=== PATIENT | female | born 1995 | race Caucasian/White ===

== ENCOUNTER 2020-08-18 13:31 | Outpatient (REF) | payer MEDICAID, SELFPAY ==
--- NOTE | 2020-08-18 | US_ITS ---
EXAMINATION: ULTRASOUND OB LESS THAN 14 WEEKS CLINICAL INFORMATION: Unknown LMP, needs dating. COMPARISON: None TECHNIQUE: Transabdominal ultrasound imaging of pelvis performed. FINDINGS: There is a single live intrauterine fetus with a crown-rump length of 4.08 cm corresponding to 11 weeks and 0 days and JAVY of 03/09/2021. Yolk sac is not visualized. The heart rate measures 167 bpm. There is normal motion seen. There is a small hypoechoic area seen along the subchorionic region suggestive of bleed. It measures 1.0 x 1.0 x 2.7 cm. Right ovary measures 1.9 x 1.4 x 1.4 cm and appears unremarkable. Left ovary measures 3.1 x 1.6 x 1.7 cm. It appears unremarkable. US/US OB <= 14 weeks fetus IMPRESSION: Live intrauterine fetus with an ultrasound gestational age of 11 weeks 0 days and JAVY of 03/09/2021. Incidental finding of a small subchorionic bleed measuring 2.7 cm, the largest measurement.
== END 2020-08-18 13:32 | disposition home or self-care (01) ==
LOC: HO.US 13:31
PROVIDERS: Visit Provider Family Medicine
DX: Z36.87 Encounter for antenatal screening for uncertain dates (principal); Z34.90 Encounter for supervision of normal pregnancy, unspecified, unspecified trimester
CPT/HCPCS: 76801

== ENCOUNTER 2025-06-19 09:09 | Outpatient (REF) | payer MEDICAID, SELFPAY ==
--- OUTSIDE RECORDS SUMMARY | 2025-06-18 10:45 | XMS_ITS | Encounter Summary ---
Author Organization [employer] Address [address] [facility] [address] [place] [address] Care Team Providers Care Application Support Consultant Name Role Phone Rylie Yañez DO Primary Care Provider [phone] Reason for Referral * Consultation (Routine) - Pending Review Specialty Diagnoses / Procedures Referred By Ari bell Referred To Contact Allergy Diagnoses Eczema, unspecified type Rylie Yañez DO [address] [place] [address] Phone: tel: fax: Referral ID Status Reason Start Date Expiration Date Visits Requested Visits Authorized [id number] Pending Review Specialty Services Required 06/18/2026 1 1 * Imaging (Routine) - Authorized Specialty Diagnoses / Procedures Referred By Ari bell Referred To Contact Radiology Diagnoses Subcutaneous nodules Procedures US Head Neck Soft Tissue Rylie Yañez DO [address] [place] [address] Phone: tel: fax: [address] Phone: tel: fax: Referral ID Status Reason Start Date Expiration Date V isits Requested Visits Authorized [id number] Authorized 06/18/2025 06/18/2026 1 1 * Consultation (Urgent) - Authorized Specialty Diagnoses / Procedures Referred By Ari bell Referred To Contact Behavioral Health Diagnoses Generalized anxiety disorder Procedures Referral to Behavioral Health Rylie Yañez DO [address] [place] [address] Phone: tel: fax: Referral ID Status Reason Start Date Expiration Date Visits Requested Visits Authorized [id number] Authorized Specialty Services Required 06/18/2026 1 1 Encounter Details Date Type Department Care Team (Late st Contact Info) Description 06/18/2025 10:45 AM EDT Office Visit [facility] [address] [place] [address] Rylie Yañez DO [address] [place] [address] Routine history and physical examination of adult (Primary Dx); Generalized anxiety disorder; Seizure disorder (CMS/HCC) (HCC); Chronic migraine; Eczema, unspecified type; Subcutaneous nodules; Polyarthralgia; Epigastric pain; BMI 24.0-24.9, adult; Dietary counseling; Exercise counseling Social History Tobacco Use Types Packs/Day Years Used Date Smoking Tobacco: Never Smokeless Tobacco: Never Alcohol Use Standard Drinks/Week Comments Yes 0 (1 standard drink = 0.6 oz pur e alcohol) Depression Answer Date Recorded Patient Health Questionnaire-9 Score 5 06/18/2025 Patient Health Questionnaire-9 Score 5 06/18/2025 Last PHQ-9: Questionnaire Data Not on file 1 Housing Stability Answer Date Recorded What is your housing situation today? I have lorraine pitts 06/18/[address] you li ve. Do you have problems with any of the following? I am not sure 06/18/2025 Food Insecurity Answer Date Recorded Within the past 12 months, y ou worried that your food would run out before you got money to buy more: Never True 06/11/2025 Within the past 12 months,th e food you bought just didn't last and you didn't have enough money to get more: Never True Transportation Answer Date Recorded In the past 12 months, has l ack of transportation kept you from medical appts, meetings, work or from getting things needed for daily living? No 06/11/2025 Utilities Answer Date Recorded In the past 12 months, has t he electric, gas, oil or water company threatened to shut off services in your home? No 06/11/2025 Depression Answer Date Recorded Patient Health Questionnaire-2 Score 2 06/18/2025 Internet Access Answer Date Recorded Internet Access Q1 Yes 06/11/2025 Internet Access Q2 Not on file 06/11/2025 Comments No Sex and Gender Information Value Date Recorded Sex Assigned at Female 06/27/2022 10:14 AM EDT Legal Sex Female 10:14 AM EDT Gender Identity Female 06/27/2022 10:14 AM EDT Sexual Orientation Straight 06/27/2022 10 :14 AM EDT documented as of this encounter Last Filed Vital Signs Vital Sign Reading Time Taken Comments Blood Pressure 132/80 06/18/2025 11:06 AM EDT Pulse 94 06/18/2025 11:06 AM EDT Temperature - - Respiratory Rate 21 06/18/2025 11:06 AM EDT Oxygen Saturation 98% 06/18/2025 11:06 AM EDT Inhaled Oxygen Concentration - - Weight 56 kg (123 lb 6 oz) 06/18/2025 11:06 AM E DT Height 149.9 cm (4' 11 ) 06/18/2025 11:06 AM EDT Body Mass Index 24.92 06/18/2025 11:06 AM EDT documented in this encounter Functional Status * Over the past 2 weeks, how often have you been bothered by any of the following problems? Question Answer Date of Assessment Author Patient Health Questionnaire -2 Score 2 06/18/2025 12:12 PM EDT Hannah Pat MA * Little interest or pleasure in doing things Answer Date of Assessment Author Several days 06/18/2025 12:12 PM EDT Hannah Pat MA * Feeling down, depressed, or hopeless Answer Date of Assessment Author Several days 06/18/2025 12:12 PM EDT Hannah Pat MA * Trouble falling or staying asleep, or sleeping too much Answer Date of Assessment Author Several days 06/18/2025 12:12 PM EDT Hannah Pat MA * Feeling tired or having little energy Answer Date of Assessment Author Several days 06/18/2025 12:12 PM EDT Hannah Pat MA * Poor appetite or overeating Answer Date of Assessment Author Not at all 06/18/2025 12:12 PM EDT Hannah Pat MA * Feeling bad about yourself - or that you are a failure or have let yourself or your family down Answer Date of Assessment Author Not at all 06/18/2025 12:12 PM EDT Hannah Pat MA * Trouble concentrating on things, such as reading the newspaper or watching television Answer Date of Assessment Author Several days 06/18/2025 12:12 PM EDT Hannah Pat MA * Moving or speaking so slowly that other people could have noticed? Or the opposite - being so fidgety or restless that you have been moving around a lot more than usual. Answer Date of Assessment Author Not at all 06/18/2025 12:12 PM EDT Hannah Pat MA * Thoughts that you would be better off or hurting yourself in some way Answer Date of Assessment Author Not at all 06/18/2025 12:12 PM EDT Hannah Pat MA * Patient Health Questionnaire-9 Score Answer Date of Assessment Author 5 06/18/2025 12:12 PM EDT Hannah Pat MA * How difficult have these problems made it for you to do your work, take care of things at home, or get along with other people? Answer Date of Assessment Author Not difficult at all 06/18/2025 12:12 PM EDT Hannah Hill MA * Over the last 2 weeks, how often have you been bothered by any of the following problems? Question Answer Date of Assessment Author Feeling nervous, anxious, or on edge 1 06/18/2025 12:12 PM EDT Hannah Pat MA Not being able to stop or co ntrol worrying 0 06/18/2025 12:12 PM EDT Hannah Pat MA Worrying too much about diff erent things 0 06/18/2025 12:12 PM BRIGITTET Hannah Pat MA Trouble relaxing 0 06/18/2025 12:12 PM EDT Hannah Pat MA Being so restless that it is hard to sit still 0 06/18/2025 12:12 PM EDT Hannah Pat MA Becoming easily annoyed or irritable 2 06/18/2025 12:12 PM EDT Hannah Pat MA Feeling afraid as if somethi ng awful might happen 0 06/18/2025 12:12 PM EDT Hananh Pat MA ADENIKE-7 Total Score 3 06/18/2025 12:12 PM EDT Hannah Pat MA documented as of this encounter Progress Notes * Rylie Otilio, DO - 06/18/2025 10:45 AM EDT LORENZO Lott is a 30 y.o. female, last seen by me for televisit in JUL 2020, presents for Annual Physical Exam. She says she has been getting a lot of pain in her bones. She says she discussed her joint pain with derm and was told that it could be side affect of her dupixent. She says that her symptoms started~ 2 mos ago and come and go. She denies any redness or swelling. No rash. Her mom had h/o OA and underwent knee replacements. She says she still gets flares of her eczema, but the dupixent helps overall. She uses an ointment from derm with the flares. She says she uses zyrtec prn itching, but it only really helps if she is asleep. She says she is following the neurology [employer] at [facility]. She says she is seizure-free for nearly 9 years.She says she is also getting gabapentin and fioricet. She says the fioricet works ok for her migraines, but sometimes she just needs to lie down in the dark. She feels that the gabapentin was startedto help with her anxiety. She still has a lot of anxiety and suffers from frequent anxiety attacks.She feels irritable and frustrated. She was seen a couple of years ago c/o nausea and was given pepcid prn but doesn't feel that it's helping. She gets a lot of discomfort in her epigastric area. She says she feels like she has a knot in her stomach after each meal. She lives with her BF and two daughters, 4 and 13. Sh is a FT mom. She gets SSI for her seizures and anxiety. She says she can't drive because she gets nervous and she is afraid she could have a seizure behindthe wheel. She has never smoked cigarettes. She says she smokes THC daily. She drinks alcohol occasionally. She follows with Eye care in [place] and has an appointment coming up. She says she last had a pap smear with her last at [facility]. Review of Systems Constitutional: Negative for activity change, appetite change, chills, fever and unexpected weight change. Respiratory: Negative for cough and shortness of breath. Cardiovascular: Negative for chest pain, palpitations and leg swelling. Gastrointestinal: Positive for abdominal distention. Negative for abdominal pain, diarrhea, nausea and vomiting. Musculoskeletal: Positive for arthralgias and joint swelling. Neurological: Positive for headaches. Negative for weakness. Psychiatric/Behavioral: The patient is nervous/anxious. Patient Active Problem List Diagnosis Eczema Seizure disorder ([facility] ([facility]) Vitamin D deficiency Chronic migraine Generalized anxiety disorder No Known Allergies No past medical history on file. No past surgical history on file. Family History Problem Relation Name Age of Onset Hypertension Mother Fibromyalgia Mother Osteoarthritis Mother Hypertension Father Arthritis Sister Diabetes Brother Hypertension Brother OBJECTIVE Visit Vitals BP 132/80 (BP Location: Left arm, Patient Position: Sitting, BP Cuff Size: Adult) Pulse 94 Resp 21 Ht 4' 11 (1.499 m) Wt 123 lb 6 oz (56 kg) LMP 05/28/2025 SpO2 98% BMI 24.92 kg/m?? OB Status Having periods Smoking Status Never BSA 1.53 m?? Physical Exam Constitutional: General: She is not in acute distress. Appearance: Normal appearance. HENT: Right Ear: Tympanic membrane, ear canal and external ear normal. Left Ear: Tympanic membrane, ear canal and external ear normal. Mouth/Throat: Pharynx: Oropharynx is clear. Eyes: Extraocular Movements: Extraocular movements intact. Conjunctiva/sclera: Conjunctivae normal. Pupils: Pupils are equal, round, and reactive to light. Cardiovascular: Rate and Rhythm: Normal rate and regular rhythm. Heart sounds: Normal heart sounds. No murmur heard. Pulmonary: Effort: Pulmonary effort is normal. Breath sounds: Normal breath sounds. No wheezing or rhonchi. Abdominal: General: Bowel sounds are normal. Palpations: Abdomen is soft. There is no mass. Tenderness: There is no abdominal tenderness. Musculoskeletal: General: Normal range of motion. Cervical back: Normal range of motion. No tenderness. Lymphadenopathy: Head: Right side of head: Posterior auricular adenopathy present. Cervical: No cervical adenopathy. Comments: Two ~ 5-10mm round, firm nodules behind R ear Skin: General: Skin is warm and dry. Findings: No rash. Neurological: General: No focal deficit present. Mental Status: She is alert and oriented to person, place, and time. Cranial Nerves: No cranial nerve deficit. Motor: No weakness. Gait: Gait normal. Psychiatric: Attention and Perception: Attention normal. Mood and Affect: Mood is anxious. Speech: Speech normal. Behavior: Behavior normal. Thought Content: Thought content normal. Patient Health Questionnaire-9 Score: 5 (06/18/2025 12:12 PM) Patient Health Questionnaire-2 Score: 2 (06/18/2025 12:12 PM) Thoughts that you would be better off or hurting yourself in some way: Not at all (06/18/2025 12:12 PM) ADENIKE-7 Total Score: 3 (06/18/2025 12:12 PM) Assessment/Plan Diagnoses and all orders for this visit: Routine history and physical examination of adult -she declines flu vaccine -she declines COVID vaccine -s/p Tdap NOV 2020 -pap nml OCT 2020, will have repeat scheduled -check fasting labs -STI/HIV screening Generalized anxiety disorder With mild depressive sx -she denies any current SI/HI -she is given the number for crisis -she agrees to trial low-dose lexapro daily -re-trial vistaril prn acute anxiety -referred to clinician for BE Seizure disorder (CMS/HCC) (HCC) Well-controlled, no seizure in many years -cont keppra and gabapentin BID -f/u with neurology as scheduled Chronic migraine -cont gabapentin BID -cont fioricet prn acute migraine -f/u with neurology as scheduled Eczema, unspecified type Significantly improved -cont dupixent as per derm -cont protopic prn -trial TAC/ceraVe compound daily -referred to pbx operator for eval Subcutaneous nodules Unchanged x many years, likely benign LNs -provided reassurance -referred for US for evaluation -advised rtc if increase in size, redness, swelling or fevers Polyarthralgia ? 2/2 dupixent -check ESR/CRP/JEREMIAH/RF -referred for elbow, hands, and knee XR -consider eval with rheum pending results Epigastric pain Probable GERD -start omeprazole daily -trial tums prn -advised contact [facility] if no improvement, she agrees with plans BMI 24.0-24.9, adult Dietary counseling Exercise counseling -encouraged [id number] Servings of fruit and vegetables each day 2 Hour limit of screen time 1 Hour of physical activity each day 0 Sugary drinks --Follow-up with me in 6 weeks or sooner prn-- Current Outpatient Medications: Dupixent 300 MG/2ML solution auto-injector, , Disp: , Rfl: tacrolimus (Protopic) 0.1 % ointment, APPLY TO THE FACE, TRUNK, ARMS, AND LEGS TWICE DAILY NEEDED, Disp: , Rfl: calcium carbonate EX (Tums E-X) 750 MG chewable tablet, Chew 2 tablets (1,500 mg) if needed in the morning, at noon, and at bedtime for indigestion or heartburn., Disp: 60 tablet, Rfl: 3 cetirizine (ZyrTEC) 10 MG tablet, Take 1 tablet (10 mg) by mouth Once per day., Disp: 90 tablet, Rfl: 3 diphenhydrAMINE (BENADryl) 25 MG tablet, Take 1 tablet (25 mg) by mouth every 6 (six) hours if needed for itching., Disp: 30 tablet, Rfl: 1 Emollient (CeraVe Moisturizing) cream, Mix 80 G of TAC 0.1% cream into 453 G of CERAVE CREAM and apply topically once a day, Disp: 453 g, Rfl: 3 escitalopram (Lexapro) 10 MG tablet, Take 1 tablet (10 mg) by mouth Once per day., Disp: 30 tablet,Rfl: 2 gabapentin (Neurontin) 300 MG capsule, Take 1 capsule by mouth in the morning and at bedtime., Disp: , Rfl: hydrOXYzine pamoate (Vistaril) 25 MG capsule, Take 1 capsule (25 mg) by mouth every 6 (six) hours if needed for anxiety., Disp: 30 capsule, Rfl: 1 levETIRAcetam (Keppra) 500 MG tablet, Take 1 tablet by mouth in the morning and at bedtime., Disp: , Rfl: medroxyPROGESTERone (Depo-Provera) 150 MG/ML injection, TAKE TO DOCTOR'S OFFICE FOR ADMINISTRATION EVERY 3 MONTHS, Disp: 1 mL, Rfl: 3 omeprazole OTC (PriLOSEC OTC) 20 MG EC tablet, Take 1 tablet (20 mg) by mouth before breakfast. Do not crush, chew, or split., Disp: 90 tablet, Rfl: 1 triamcinolone (Kenalog) 0.1 % cream, Mix 80 G of TAC 0.1% cream into 453 G of CERAVE CREAM and apply topically once a day, Disp: 80 g, Rfl: 3 Current Facility-Administered Medications: medroxyPROGESTERone (Depo-Provera) injection 150 mg, 150 mg, Intramuscular, q3 months, Jessica Jacobson MD, 150 mg at 06/09/25 1330 Scribe Attestation: Clement Pantoja, am serving as a scribe to document services personally performed by Rylie Heart, based on the patient's response to questions by provider and provider's statements to me. 06/18/25 12:22 PM Physicians Attestation: Rylie Pantoja DO, have reviewed the information by the scribe, Clement Mon, for accuracy and agree with its content. documented in this encounter Plan of Treatment Upcoming Encounters Date Type Department Care Team (Late st Contact Info) Description 08/25/2025 1:30 PM EST Clinical Support [facility] [address] [place] [phone] Scheduled Orders Name Type Priority Associated Diagnoses Orde r Schedule T4, Free Lab Routine Routine history and physical examination of adult Seizure disorder (CMS/HCC) (HCC) Eczema, unspecified type BMI 24.0-24.9, adult Dietary counseling Exercise counseling Polyarthralgia Expected: 06/18/2025 (Approximate), Expires: 06/18/2026 Lipid Panel, Standard Lab Routine Routine history and physical examination of adult Seizure disorder (CMS/HCC) (HCC) Eczema, unspecified type BMI 24.0-24.9, adult Dietary counseling Exercise counseling Polyarthralgia Expected: 06/18/2025 (Approximate), Expires: 06/18/2026 TSH Lab Routine Routine history and physical examination of adult Seizure disorder ([facility]) ([facility]) Eczema, unspecified type BMI 24.0-24.9, adult Dietary counseling Exercise counseling Polyarthralgia Expected: 06/18/2025 (Approximate), Expires: 06/18/2026 Vitamin D, 25-Hydroxy, Total, Immunoassay Lab Routine Routine history and physical examination of adult Seizure disorder ([facility]) ([facility]) Eczema, unspecified type BMI 24.0-24.9, adult Dietary counseling Exercise counseling Polyarthralgia Expected: 06/18/2025 (Approximate), Expires: 06/18/2026 Hepatic Function Panel Lab Routine Routine history and physical examination of adult Seizure disorder ([facility]) ([facility]) Eczema, unspecified type BMI 24.0-24.9, adult Dietary counseling Exercise counseling Polyarthralgia Expected: 06/18/2025 (Approximate), Expires: 06/18/2026 Hemoglobin A1c Lab Routine Routine history and physical examination of adult Seizure disorder ([facility]) ([facility]) Eczema, unspecified type BMI 24.0-24.9, adult Dietary counseling Exercise counseling Polyarthralgia Expected: 06/18/2025 (Approximate), Expires: 06/18/2026 CBC Lab Routine Routine history and physical examination of adult Seizure disorder ([facility]) ([facility]) Eczema, unspecified type BMI 24.0-24.9, adult Dietary counseling Exercise counseling Polyarthralgia Expected: 06/18/2025, Expires: 06/18/2026 Basic Metabolic Panel Lab Routine Routine history and physical examination of adult Seizure disorder ([facility]) ([facility]) Eczema, unspecified type BMI 24.0-24.9, adult Dietary counseling Exercise counseling Polyarthralgia Expected: 06/18/2025 (Approximate), Expires: 06/18/2026 Hepatitis B surface antigen, EIA Lab Routine Routine history and physical examination of adult Seizure disorder ([facility]) ([facility]) Eczema, unspecified type BMI 24.0-24.9, adult Dietary counseling Exercise counseling Polyarthralgia Expected: 06/18/2025 (Approximate), Expires: 06/18/2026 Chlamydia/N. Gonorrhoeae RNA, TMA, Urogenitial Microbiology Routine Routine history and physical examination of adult Seizure disorder ([facility]) ([facility]) Eczema, unspecified type BMI 24.0-24.9, adult Dietary counseling Exercise counseling Polyarthralgia Ordered: 06/18/2025 HIV-1/2 Antigen and Antibodies, Fourth Generation, with Reflexes Lab Routine Routine history and physical examination of adult Seizure disorder ([facility]) ([facility]) Eczema, unspecified type BMI 24.0-24.9, adult Dietary counseling Exercise counseling Polyarthralgia Expected: 06/18/2025 (Approximate), Expires: 06/18/2026 Hepatitis C Antibody with Reflex to HCV, RNA, Quantitative, Real-Time PCR Lab Routine Routine history and physical examination of adult Seizure disorder ([facility]) ([facility]) Eczema, unspecified type BMI 24.0-24.9, adult Dietary counseling Exercise counseling Polyarthralgia Expected: 06/18/2025, Expires: 06/18/2026 RPR (Monitor) with Reflex to Titer Lab Routine Routine history and physical examination of adult Seizure disorder ([facility]) ([facility]) Eczema, unspecified type BMI 24.0-24.9, adult Dietary counseling Exercise counseling Polyarthralgia Expected: 06/18/2025, Expires: 06/18/2026 Hepatitis B Surface Antibody, Qualitative Lab Routine Routine history and physical examination of adult Seizure disorder ([facility]) ([facility]) Eczema, unspecified type BMI 24.0-24.9, adult Dietary counseling Exercise counseling Polyarthralgia Expected: 06/18/2025 (Approximate), Expires: 06/18/2026 JEREMIAH Screen,IFA, with Reflex to Titer and Pattern Lab Routine Routine history and physical examination of adult Seizure disorder ([facility]) ([facility]) Eczema, unspecified type BMI 24.0-24.9, adult Dietary counseling Exercise counseling Polyarthralgia Expected: 06/18/2025 (Approximate), Expires: 06/18/2026 Lyme Disease Ab with Reflex to Blot (IgG, IgM) Lab Routine Routine history and physical examination of adult Seizure disorder ([facility]) ([facility]) Eczema, unspecified type BMI 24.0-24.9, adult Dietary counseling Exercise counseling Polyarthralgia Expected: 06/18/2025, Expires: 06/18/2026 Rheumatoid Factor Lab Routine Routine history and physical examination of adult Seizure disorder (CMS/HCC) (HCC) Eczema, unspecified type BMI 24.0-24.9, adult Dietary counseling Exercise counseling Polyarthralgia Expected: 06/18/2025, Expires: 06/18/2026 Sed Rate by Modified Westergren Lab Routine Routine history and physical examination of adult Seizure disorder (CMS/HCC) (HCC) Eczema, unspecified type BMI 24.0-24.9, adult Dietary counseling Exercise counseling Polyarthralgia Expected: 06/18/2025, Expires: 06/18/2026 C-reactive Protein Lab Routine Routine history and physical examination of adult Seizure disorder (CMS/HCC) (HCC) Eczema, unspecified type BMI 24.0-24.9, adult Dietary counseling Exercise counseling Polyarthralgia Expected: 06/18/2025 (Approximate), Expires: 06/18/2026 Hepatitis A Antibody, Total Lab Routine Routine history and physical examination of adult Seizure disorder (CMS/HCC) (HCC) Eczema, unspecified type BMI 24.0-24.9, adult Dietary counseling Exercise counseling Polyarthralgia Expected: 06/18/2025 (Approximate), Expires: 06/18/2026 T-SPOT .TB Lab Routine Routine history and physical examination of adult Seizure disorder (CMS/HCC) (HCC) Eczema, unspecified type BMI 24.0-24.9, adult Dietary counseling Exercise counseling Polyarthralgia Expected: 06/18/2025 (Approximate), Expires: 06/18/2026 XR Elbow 3+ Views Right Imaging Routine Polyarthralgia Expected: 06/18/2025, Expires: 06/18/2026 XR Hand 3+ Views Left Imaging Routine Polyarthralgia Expected: 06/18/2025, Expires: 06/18/2026 XR Hand 3+ Views Right Imaging Routine Polyarthralgia Expected: 06/18/2025, Expires: 06/18/2026 XR Knee 4+ Views Left Imaging Routine Polyarthralgia Expected: 06/18/2025, Expires: 06/18/2026 US Head Neck Soft Tissue Imaging Routine Subcutaneous nodules Expected: 06/18/2025, Expires: 06/18/2026 Hepatitis B Core Antibody, Total Lab Routine Routine history and physical examination of adult Generalized anxiety disorder Seizure disorder (CMS/HCC) (HCC) Chronic migraine Eczema, unspecified type Subcutaneous nodules Polyarthralgia Epigastric pain BMI 24.0-24.9, adult Dietary counseling Exercise counseling Expected: 06/18/2025 (Approximate), Expires: 06/18/2026 Scheduled Referrals Name Type Priority Associated Diagnoses Orde r Schedule Referral to Allergy Outpatient Referral Routine Eczema, unspecified type Expected: 06/18/2025 (Approximate), Expires: 06/18/2026 documented as of this encounter Visit Diagnoses Diagnosis Routine history and physical examination of adult- Primary Generalized anxiety disorder Seizure disorder (CMS/HCC) (HCC) Unspecified epilepsy without mention of intractable epilepsy Chronic migraine Eczema, unspecified type Subcutaneous nodules Localized superficial swelling, mass, or lump Polyarthralgia Pain in joint, multiple sites Epigastric pain Abdominal pain, epigastric BMI 24.0-24.9, adult Dietary counseling Dietary surveillance and counseling Exercise counseling documented in this encounter Additional Health Concerns Assessment Noted Time PHQ-9 Depression Total Score: 5 06/18/20 25 12:12 PM EDT documented as of this encounter Care Teams Application Support Consultant Relationship Specialty Start Date End Date Rylie Yañez DO [address] [place] [phone] PCP - General Family Medicine 01/14/13 documented as of this encounter
--- NOTE | ~2025-06-19 | XR_ITS ---
EXAMINATION: X-ray right hand X-ray left hand CLINICAL INFORMATION: Polyarthralgia COMPARISON: None TECHNIQUE: Right hand 3 views. Left hand 3 views. FINDINGS: Right hand: No fracture or dislocation. No significant joint space narrowing or marginal osteophytes. No osseous erosion. No abnormal soft tissue calcification. Left hand: No fracture or dislocation. No significant joint space narrowing or marginal osteophytes. No osseous erosion. No abnormal soft tissue calcification. XR/XR hand RT min 3V IMPRESSION: No acute osseous findings Electronically signed by: Du Rendon MD 06/19/2025 10:37 AM EDT
--- NOTE | ~2025-06-19 | XR_ITS ---
EXAMINATION: XR KNEE 4 OR MORE VIEWS LEFT HISTORY: diffuse joint pain COMPARISON: There are no prior studies available for comparison. FINDINGS: Five views of the left knee are submitted. Osseous mineralization is normal. There is no fracture or dislocation. The joint spaces are preserved. The soft tissues are unremarkable. There is no joint effusion. XR/XR knee LT 4V IMPRESSION: Unremarkable examination of the left knee. Electronically signed by: Mukul Santos MD 06/19/2025 10:25 AM EDT
--- NOTE | ~2025-06-19 | XR_ITS ---
EXAMINATION: X-ray right hand X-ray left hand CLINICAL INFORMATION: Polyarthralgia COMPARISON: None TECHNIQUE: Right hand 3 views. Left hand 3 views. FINDINGS: Right hand: No fracture or dislocation. No significant joint space narrowing or marginal osteophytes. No osseous erosion. No abnormal soft tissue calcification. Left hand: No fracture or dislocation. No significant joint space narrowing or marginal osteophytes. No osseous erosion. No abnormal soft tissue calcification. XR/XR hand LT min 3V IMPRESSION: No acute osseous findings Electronically signed by: Du Rendon MD 06/19/2025 10:37 AM EDT
--- NOTE | ~2025-06-19 | XR_ITS ---
EXAMINATION: XR ELBOW 3 VIEWS RIGHT HISTORY: diffuse joint pain COMPARISON: There are no prior studies available for comparison. FINDINGS: Four views of the right elbow are submitted. Osseous mineralization is normal. There is no fracture or dislocation. The joint spaces are preserved. The soft tissues are unremarkable. There is no joint effusion. XR/XR elbow RT min 3V IMPRESSION: Unremarkable examination of the right elbow. Electronically signed by: Mukul Santos MD 06/19/2025 10:23 AM EDT
--- OUTSIDE RECORDS SUMMARY | 2025-06-19 10:04 | XMS_ITS | Encounter Summary ---
Author Organization [facility] Address [address] [facility] 7t [place] [address] Care Team Providers Care Housefellow Name Role Phone RaquelRylie gomes Primary Care Provider Encounter Details Date Type Department Care Team (Late st Contact Info) Description 07/20/2022 Abstract [facility] [address] [place] [address] Dental, Provider, DDS Social History Tobacco Use Types Packs/Day Years Used Date Smoking Tobacco: Never Assessed Comments Unknown Sex and Gender Information Value Date Recorded Sex Assigned at Female 06/27/2022 10:14 AM EDT Legal Sex Female 10:14 AM EDT Gender Identity Female 06/27/2022 10:14 AM EDT Sexual Orientation Straight 06/27/2022 10 :14 AM EDT documented as of this encounter Plan of Treatment Upcoming Encounters Date Type Department Care Team (Late st Contact Info) Description 08/25/2025 1:30 PM EST Clinical Support [facility] MEDICINE [address] [place] [address] documented as of this encounter Procedures Procedure Name Priority Date/Time Associated Diagnosis Comments 14 O AMALGAM - 1 SURF, PRIMARY OR PERMANENT Routine 07/20/2022 12:00 AM EST 3 O AMALGAM - 1 SURF, PRIMARY OR PERMANENT Routine 07/20/2022 12:00 AM EST 21 MB(V) RESIN-BASED COMPOSITE - 2 SURF, POSTERIOR Routine 07/14/2022 12:00 AM EST 15 LO RESIN-BASED COMPOSITE - 2 SURF, POSTERIOR Routine 07/14/2022 12:00 AM EST 5 B(V)O RESIN-BASED COMPOSITE - 2 SURF, POSTERIOR Routine 06/28/2022 12:00 AM EDT 2 B(V)O RESIN-BASED COMPOSITE - 2 SURF, POSTERIOR Routine 06/28/2022 12:00 AM EDT 6 L RESIN-BASED COMPOSITE - 2 SURF, ANTERIOR Routine 06/28/2022 12:00 AM EDT documented in this encounter Visit Diagnoses Not on filedocumented in this encounter Care Teams Housefellow Relationship Specialty Start Date End Date Rylie Yañez DO [address] [place] [phone] PCP - General Family Medicine 01/14/13 documented as of this encounter
--- OUTSIDE RECORDS SUMMARY | 2025-06-19 10:04 | XMS_ITS | Encounter Summary ---
Author Organization [employer] Address [address] [facility] 7t [place] [address] Care Team Providers Care Cementer Name Role Phone Rylie Yañez Primary Care Provider Encounter Details Date Type Department Care Team (Latest Contact Info) Description 06/18/2025 Travel Social History Tobacco Use Types Packs/Day Years [...] AM EDT documented as of this encounter Functional Status * Over the [...] diff erent things 0 06/18/2025 12:12 PM EDT Hannah Pat MA Trouble relaxing 0 06/18/2025 12:12 PM EDT Hannah Pat MA Being so restless that it is hard to sit still 0 06/18/2025 12:12 PM EDT Hannah Pat MA Becoming easily annoyed or irritable 2 06/18/2025 12:12 PM EDT Hannah Pat MA Feeling afraid as if somethi ng awful might happen 0 06/18/2025 12:12 PM EDT Hannah Pat MA ADENIKE-7 Total Score 3 06/18/2025 12:12 PM EDT Hannah Pat MA documented as of this encounter Plan of Treatment Upcoming Encounters Date Type Department Care Team (Late st Contact Info) Description 08/25/2025 1:30 PM EST Clinical Support [facility] MEDICINE [address] [place] [address] documented as of this encounter Visit Diagnoses Not on filedocumented in this encounter Additional Health Concerns Assessment Noted Time PHQ-9 Depression Total Score: 5 06/18/20 25 12:12 PM EDT documented as of this encounter Care Teams Cementer Relationship Specialty Start Date End Date Rylie Yañez DO [address] [place] [address] PCP - General Family Medicine 01/14/13 documented as of this encounter
--- OUTSIDE RECORDS SUMMARY | 2025-06-19 10:04 | XMS_ITS | Encounter Summary ---
Author Organization [employer] Address [address] [facility] 7t [place] [address] Care Team Providers Care Operations And Maintenance Technican Name Role Phone Rylie Yañez DO Primary Care Provider Encounter Details Date Type Department Care Team (Latest Contact Info) Description 06/13/2022 Abstract [facility] CONVERSIONS Dental, Provider, DDS Social History Tobacco Use [...] Description 08/25/2025 1:30 PM EST Clinical Support [facility] MEDICINE [address] [place] [address] documented as of this encounter Visit Diagnoses Not on filedocumented in this encounter Care Teams Operations And Maintenance Technican Relationship Specialty Start Date End Date Rylie Yañez DO [address] [place] [address] PCP - General Family Medicine 01/14/13 documented as of this encounter
--- OUTSIDE RECORDS SUMMARY | 2025-06-19 10:04 | XMS_ITS | Encounter Summary ---
Author Organization [employer] Address [address] [facility] [address] 7t [place] [address] Care Team Providers Care Box Toe Stitcher Name Role Phone RaquelRylie gomes Primary Care Provider + [phone] Encounter Details Date Type Department Care Team (Late st Contact Info) Description 06/09/2025 Orders Only [facility] MEDICINE [address] [place], [place] [phone] Jessica Jacobson MD [address] [place], [place] [phone] Encounter for contraceptive management, unspecified type (Primary Dx) Social History Tobacco Use Types Packs/Day Years Used Date Smoking Tobacco: Never Smokeless Tobacco: Never Alcohol Use Standard Drinks/Week Comments Yes 0 (1 standard drink = 0.6 oz pur e alcohol) Housing Stability Answer Date Recorded What is your housing situation today? I have lorraine pitts 06/11/[address] you li ve. Do you have problems with any of the following? None of the above 06/11/2025 Food Insecurity Answer Date Recorded Within the [...] off services in your home? No 06/11/2025 Internet Access Answer Date Recorded Internet Access Q1 Yes 06/11/2025 Internet Access Q2 Not on file 06/11/2025 Comments Unknown Sex and Gender Information Value [...] Description 08/25/2025 1:30 PM EST Clinical Support [facility] MEDICINE [address] [place] [address] documented as of this encounter Visit Diagnoses Diagnosis Encounter for contraceptive management, unspecified type- Primary documented in this encounter Care Teams Box Toe Stitcher Relationship Specialty Start Date End Date Rylie Yañez DO [address] [place] [address] PCP - General Family Medicine 01/14/13 documented as of this encounter
--- OUTSIDE RECORDS SUMMARY | 2025-06-19 10:04 | XMS_ITS | Clinical Summary ---
Author Organization [employer] Address [address] [facility] 7t [place] [address] Care Team Providers Care Mobile Unit Assistant Name Role Phone OtilioRylie Primary Care Provider [phone] Allergies No known active allergies Medications levETIRAcetam (Keppra) 500 MG tablet Take 1 tablet by mouth in the morning and at bedtime. 020 Active gabapentin (Neurontin) 300 MG capsule Take 1 capsule by mouth in the morning and at bedtime. Active medroxyPROGESTER one (Depo-Provera) 150 MG/ML injectionIndicat ions:Encounter for management and injection of injectable progestin contraceptive TAKE TO DOCTOR'S OFFICE FOR ADMINISTRATION EVERY 3 MONTHS 1 mL 3 025 Active hydrOXYzine pamoate (Vistaril) 25 MG capsule Take 1 capsule (25 mg) by mouth every 6 (six) hours if needed for anxiety. 30 capsule 1 025 Active escitalopram (Lexapro) 10 MG tablet Take 1 tablet (10 mg) by mouth Once per day. 30 tablet 2 025 2025 Active omeprazole OTC (PriLOSEC OTC) 20 MG EC tablet Take 1 tablet (20 mg) by mouth before breakfast. Do not crush, chew, or split. 90 tablet 1 025 2025 Active calcium carbonate EX (Tums E-X) 750 MG chewable tablet Chew 2 tablets (1,500 mg) if needed in the morning, at noon, and at bedtime for indigestion or heartburn. 60 tablet 3 025 2025 Active Dupixent 300 MG/2ML solution auto-injector 025 Active tacrolimus (Protopic) 0.1 % ointment APPLY TO THE FACE, TRUNK, ARMS, AND LEGS TWICE DAILY NEEDED Active diphenhydrAMINE (BENADryl) 25 MG tablet Take 1 tablet (25 mg) by mouth every 6 (six) hours if needed for itching. 30 tablet 1 2024 Active Emollient (CeraVe Moisturizing) cream Mix 80 G of TAC 0.1% cream into 453 G of CERAVE CREAM and apply topically once a day 453 g 3 Active triamcinolone (Kenalog) 0.1 % cream Mix 80 G of TAC 0.1% cream into 453 G of CERAVE CREAM and apply topically once a day 80 g 3 Active cetirizine (ZyrTEC) 10 MG tablet Take 1 tablet (10 mg) by mouth Once per day. 90 tablet 3 2025 Active Sodium Fluoride (PreviDent) 1.1 % gel in the morning and at bedtime. 2024 Discontinued(M ed list cleanup (will not trigger notification to Pharmacy)) pyridoxine (Vitamin B-6) 25 MG tablet Take 1 tablet by mouth every 8 (eight) hours if needed for nausea or vomiting. 2024 Discontinued(M ed list cleanup (will not trigger notification to Pharmacy)) doxylamine (Unisom SleepTabs) 25 MG tablet Take 1 tablet by mouth every 8 (eight) hours if needed. 2024 Discontinued MV-Min-Fe Fum-FA-DHA (+DHA) 28-0.975 & 200 MG misc Take 1 tablet by mouth 1 (one) time each day. 2024 Discontinued levonorgestrel (Plan B One-Step) 1.5 MG tablet Take 1 tablet by mouth. 2024 Discontinued SUMAtriptan (Imitrex) 25 MG tablet Take 1 tablet by mouth 1 (one) time if needed for migraine. May repeat after 2 hours 2024 Discontinued(M ed list cleanup (will not trigger notification to Pharmacy)) Cetirizine HCl 10 MG capsule Take 1 capsule by mouth Once daily. 30 capsule 11 023 2024 Discontinued triamcinolone (Kenalog) 0.1 % ointmentIndicati ons:Other eczema MIX WITH cerave lotion AND APPLY EVERY MORNING 80 g 1 023 2024 Discontinued(M ed list cleanup (will not trigger notification to Pharmacy)) famotidine (Pepcid) 20 MG tabletIndication s:Nausea Take 1 tablet (20 mg) by mouth 2 times daily. 60 tablet 11 023 2024 Discontinued(I neffective) triamcinolone (Kenalog) 0.025 % creamIndications :Eczema, unspecified type MIX ENTIRE TUBE WITH 16 OUNCES JAR OF CERAVE and APPLY FROM NECK DOWN TWICE DAILY 80 g 2 024 2024 Discontinued(M ed list cleanup (will not trigger notification to Pharmacy)) hydrOXYzine pamoate (Vistaril) 25 MG capsule TAKE 1 CAPSULE BY MOUTH EVERY 6 HOURS NEEDED FOR ANXIETY 30 capsule 1 024 2024 Discontinued(R eorder (will not trigger notification to Pharmacy)) Hospital, Clinic, or Other Facility Administered Medication Ordered Dose Route Frequency Start Date End Date Status medroxyPROGESTERone (Depo-Provera) injection 150 mgIndications:Encounte r for contraceptive management, unspecified type 150 mg IM Every 3 months 06/09/2025 06/04/2026 Acti ve Active Problems Problem Noted Date Diagnosed Date Chronic migraine 06/18/2025 Generalized anxiety disorder 06/18/2025 Eczema 06/16/2015 Seizure disorder (CMS/HCC) 06/16/2015 Vitamin D deficiency 06/16/2015 Resolved Problems Problem Noted Date Diagnosed Date Resolved Date Acute contact dermatitis 07/18/2022 Anxiety disorder 06/16/2015 06/18/2025 Encounters Date Type Department Care Team Description 06/18/2025 10:45 AM EDT Office Visit [facility] MEDICINE [address] [place] [address] Rylie Yañez DO Routine history and physical examination of adult (Primary Dx); Generalized anxiety disorder; Seizure disorder (CMS/HCC) (HCC); Chronic migraine; Eczema, unspecified type; Subcutaneous nodules; Polyarthralgia; Epigastric pain; BMI 24.0-24.9, adult; Dietary counseling; Exercise counseling 06/18/2025 Travel 06/11/2025 Patient Outreach [address] [address] Rylie Yañez DO Pre-visit Planning (SDOH Screening negative and Tobacco screening negative) 06/10/[address] [address] Rylie Yañez DO Chart Prep 06/09/2025 1:00 PM EDT Clinical Support [address] [address] Neisha Pagan, FELIX Encounter for contraceptive management, unspecified type 06/09/2025 Orders Only [address] [address] Jessica Jacobson MD Encounter for contraceptive management, unspecified type (Primary Dx) 06/09/2025 Travel 06/02/[address] [address] Rylie Yañez DO Appointment Request 06/02/2025 Travel 03/24/2025 1:00 PM EDT Clinical Support [address] [address] Caridad Babb RN Encounter for contraceptive management, unspecified type 03/24/2025 Travel from Last 3 Months Immunizations Immunization Administration Dates Next Due DTP 06/29/2001, 8,12/03/1997,08/22,1996 HPV 9-Valent 06/16/2015,03/10/2015 HPV, Quadrivalent 12/04/2014, 9,12/26/2008,06/26 Hep A, ped/adol, 2 dose 06/03/2010,06/29/2001 Hep B, Adolescent or Pediatric 12/03/1997,1995,1996 Hib (HbOC) 05/19/1998, 8,1996,08/13 Influenza injectable quadriv alent IIV4 with preservative 05/15/2018,06/16/2015 Influenza injectable quadriv alent preservative free 05/30/2014 Influenza, IIV3, injectable 08/12/2011, 0,06/26/2008 Influenza, Split (incl. dirk fied surface antigen) 05/27/2013 MMR 06/29/2001,04/02/2000,12/03/1997 Meningococcal MCV4P ACYW-135 12/20/2007 OPV, Trivalent 06/29/2001, 8,1996,08/13 Pneumococcal Polysaccharide PPSV23 03/10/2015 Tdap 12/10/2020,05/30/2014,12/20/2007 Varicella 04/28/2009,05/19/1998 Family History Medical History Relation Name Comments Diabetes Brother Hypertension Brother Hypertension Father Fibromyalgia Mother Hypertension Mother Osteoarthritis Mother Arthritis Sister Relation Name Status Comments Brother Father Maternal Grandmother Mother Sister Social History Tobacco Use Types Packs/Day Years Used Date Smoking Tobacco: Never Smokeless Tobacco: Never Tobacco Cessation:Counseling Given: Not Answered Alcohol Use Standard Drinks/Week Comments Yes 0 [...] Q2 Not on file 06/11/2025 Comments No Intention Date Recorded No desire to become (finding) 1 Sex and Gender Information Value Date Recorded Sex Assigned at Female 06/27/2022 10:14 AM EDT Legal Sex Female 10:14 AM EDT Gender Identity Female 06/27/2022 10:14 AM EDT Sexual Orientation Straight 06/27/2022 10 :14 AM EDT Last Filed Vital Signs Vital Sign Reading Time Taken Comments Blood Pressure 132/80 06/18/2025 11:06 AM EDT Pulse 94 06/18/2025 11:06 AM EDT Temperature 36.4 C (97.5 F) 03/29/2023 2:03 PM EDT Respiratory Rate 21 06/18/2025 11:06 AM EDT Oxygen Saturation 98% 06/18/2025 11:06 AM EDT Inhaled Oxygen Concentration - - Weight 56 kg (123 lb 6 oz) 06/18/2025 11:06 AM E DT Height 149.9 cm (4' 11 ) 06/18/2025 11:06 AM EDT Body Mass Index 24.92 06/18/2025 11:06 AM EDT Plan of Treatment Upcoming Encounters Date Type Department Care Team (Late st Contact Info) Description 08/25/2025 1:30 PM EST Clinical Support [facility] MEDICINE [address] [place] [phone] Health Maintenance Due Date Last Done Comments Dental Oral Exam 1996 Dental Prophylaxis 1996 Dental X-Ray: Bitewings 1996 Dental X-Ray: Full Mouth 1996 Hepatitis C Screening 02/22/2014 HPV/Cotest 11/10/2023 Pap Smear 11/10/2023 11/09/2020 COVID-19 Vaccine ( season) 2025 Influenza Vaccine (#1) 2025 8, 06/16/2015, 05/30/2014, Additional history exists Family Planning (PISQ) 06/09/2026 06/09/2025 Alcohol/Substance Use Screening 06/18/2026 06/18/2025 Depression Screening 06/18/2026 06/18/2025, 06/18/20 Disability Screening 06/18/2026 06/18/2025 SDOH Screening 06/18/2026 06/18/2025 Tobacco Screening 06/18/2026 06/18/2025 DTaP/Tdap/Td Vaccines (9 - Td or Tdap) 12/10/2030 12/10/2020, 05/30/2014, 12/20/2007, Additional history exists Zoster Vaccines (1 of 2) 02/22/2046 RSV Patients and Patients Aged 60 years or older (1 - 1-dose 75+ series) 02/22/2071 Hepatitis B Vaccines Completed 12/03/1997, 1996, 1996 HIB Vaccines Completed 05/19/1998, 03/1998, 1996, Additional history exists IPV Vaccines Completed 06/29/2001, 03/1998, 1996, Additional history exists Meningococcal Vaccine Aged Out 12/20/2007 No maureen mahendra eligible based on patient's age to complete this topic Hepatitis A Vaccines Completed 06/03/2010, 06/29/20 Pneumococcal Vaccine: Pediatrics (0 to 5 Years) and At-Risk Patients (6 to 49) Years Aged Out 03/10/2015 No longer eligible based on patient's age to complete this topic HPV Vaccines Completed 06/16/2015, 02/25, 12/04/2014, Additional history exists HIV Screening Completed 04/03/2023 Meningococcal B Vaccine Aged Out No l onger eligible based on patient's age to complete this topic RSV under 20 months Aged Out No longe r eligible based on patient's age to complete this topic Rotavirus Vaccines Aged Out No longer eligible based on patient's age to complete this topic Procedures Procedure Name Priority Date/Time Associated Diagnosis Comments POCT , URINE Routine 06/09/2025 1:15 PM EDT Encounter for contraceptive management, unspecified type POCT , URINE Routine 03/24/2025 1:35 PM EDT Encounter for contraceptive management, unspecified type HIV ANTIBODY/ANTIGEN ([place] DPH) Routine 04/03/2023 3:37 PM EDT PAP SMEAR Routine 11/09/2020 12:00 AM EDT from Last 3 Months or Most Recently Relevant to Health Maintenance Results * POCT Urine (06/09/2025 1:15 PM EDT) Only the most recent of2 resultswithin the time period is included. Preg Test, Ur Negative Negative, Indeterminate, None Detected, Invalid, Specimen unsatisfactory for evaluation, Weakly Positive, 2+ QC Media Lot # [id number] Lot# Expiration Date [id number] Urine 06/09/2025 1:15 PM EDT Jessica Jacobson MD POINT OF CARE TEST ENTER/EDIT ORDERABLES Final Result * HIV Ab/Ag ([place] DPH) (04/03/2023 3:37 PM EDT) HIV AB/AG Nonreactive Nonreactive [facility] Comment:HIV-1 p24 Ag and/or HIV-1/HIV-2 Ab not detected.A test result that is nonreactive does not exclude thepossibility of exposure to or infection with HIV-1 and/orHIV-2. Nonreactive results in this assay for individualswith prior exposure to HIV-1 and/or HIV-2 may be due toantigen and antibody levels that are below the limit ofdetection of this assay.The [employer] HIV Ag/Ab Combo assay result andsupplemental assay results should be interpreted inconjunction with the patient's clinical presentation,history and other laboratory results. If the results areinconsistent with clinical evidence, additional testing issuggested to confirm the result. 04/03/2023 3:37 PM EDT 04/03/2023 4:11 PM EDT [facility] LAB BLOOD ORDERABLES Final Re sult [facility] [address] [place] [address] [phone] * Pap Smear (11/09/2020 12:00 AM EDT) Swab Rylie Yañez DO LAB CYTOLOGY ORDERABLES Jaquelin benavidez Result [facility] [address], [place] [address] from Last 3 Months or Most Recently Relevant to Health Maintenance Insurance [facility] C3 DENTAL-[facility] MEDICAID STAND ADULT Care Teams Mobile Unit Assistant Relationship Specialty Start Date End Date Rylie Yañez DO [address] [place] [phone] PCP - General Family Medicine 01/14/13
[2025-06-19 11:46] LABS: Hematocrit 43.2 % (37.0-47.0); Hemoglobin 14.2 g/dl (12.0-16.0); Mean Corpuscular HGB Conc 32.9 g/dl (31.0-35.0); Mean Corpuscular Hemoglobin 29.9 pg (27.0-33.0); Mean Corpuscular Volume 90.9 fL (80.0-98.0); NRBC Abs Auto 0.000 X10*3/uL (0.0-0.012); NRBC Pct Auto 0.0 /100WBC (0.0-0.2); Platelet Count 315 X10*3/uL (160-400); Red Blood Count 4.75 X10*6/uL (4.20-5.50); White Blood Count 9.1 X10*3/uL (4.8-10.8)
[2025-06-19 12:11] LABS: Alanine Aminotransferase 15 U/L (0-31); Albumin Level 5.4 g/dL (3.5-5.0); Alkaline Phosphatase 57 U/L (39-117); Anion Gap 13 (12-20); Aspartate Amino Transferase 22 U/L (5-31); Blood Urea Nitrogen 10 mg/dL (9-16); Calcium 9.9 mg/dL (8.4-10.2); Carbon Dioxide 23 mmol/L (22-29); Chloride 111 mmol/L (96-108); Cholesterol 173 mg/dL (<200); Estimated Glomerular Filt Rate > 60; HDL Cholesterol 48 mg/dL (>40); Potassium 4.0 mmol/L (3.3-5.1); Sodium 143 mmol/L (135-145); Total Protein 8.0 g/dL (6.5-8.0); Triglycerides 46 mg/dL (<150)
[2025-06-19 12:16] LABS: Free T4 (Free Thyroxine) 1.00 ng/dL (0.71-1.85); Thyroid Stimulating Hormone 1.50 uIU/mL (0.32-4.0)
[2025-06-19 12:18] LABS: HBc Num1 0.20 S/CO (0.00-0.79); HBsAGNum1 0.33 S/CO (0.00-0.99); HIV Num 1 0.06 S/CO (0.00-0.99); Hepatitis B Surface Antigen Negative (Negative); ~HepC Num1 0.11 S/CO (0.00-0.79); ~Hepatitis C Antibody Nonreactive (Nonreactive)
[2025-06-19 12:30] LABS: HBS Num1 4.78 mIU/mL (0-7.99); ~Hepatitis B Surface Antibody NONREACTIVE (Nonreactive)
[2025-06-20 04:52] LABS: ~Hepatitis A Antibody IgG 10.64 S/CO (0.00-0.99)
[2025-06-20 05:49] LABS: Lyme Abs Screen <0.90 index
[2025-06-22 04:19] LABS: TS Negative Control Passed; TS Panel A 0; TS Panel B 0; TS Positive Control Passed; TSpotTB Negative (Negative)
[2025-06-26 14:39] LABS: Anti Nuclear Antibody Screen NEGATIVE (NEGATIVE)
== END 2025-06-19 09:10 | disposition home or self-care (01) ==
LOC: HO.HHCL 09:09
PROVIDERS: PCP Family Medicine; Visit Provider Family Medicine
DX: Z00.00 Encounter for general adult medical examination without abnormal findings (principal); Z11.1 Encounter for screening for respiratory tuberculosis; Z11.4 Encounter for screening for human immunodeficiency virus [HIV]; Z11.59 Encounter for screening for other viral diseases; G40.909 Epilepsy, unspecified, not intractable, without status epilepticus; G43.909 Migraine, unspecified, not intractable, without status migrainosus; L30.9 Dermatitis, unspecified; F41.1 Generalized anxiety disorder; R22.9 Localized swelling, mass and lump, unspecified; R10.13 Epigastric pain; M79.641 Pain in right hand; M25.562 Pain in left knee; M25.521 Pain in right elbow; Z68.24 Body mass index [BMI] 24.0-24.9, adult; Z71.3 Dietary counseling and surveillance; Z71.82 Exercise counseling
CPT/HCPCS: 36415; 73080; 73130; 73564; 80048; 80061; 80076; 82306; 83036; 84439; 84443; 85027; 85652; 86038; 86140; 86431; 86481; 86592; 86617; 86618; 86704; 86706; 86708; 86803; 87340; 87389

== ENCOUNTER → 2025-06-19 09:27 | Outpatient (BNV) | payer MEDICAID, SELFPAY | PROVIDERS: PCP Family Medicine; Visit Provider Radiology Diagnostic Radiology | DX: M25.562 Pain in left knee (principal); M25.521 Pain in right elbow; M79.642 Pain in left hand; M79.641 Pain in right hand | CPT/HCPCS: 73080; 73130; 73564 ==

== ENCOUNTER 2025-07-22 08:56 | Outpatient (REF) | payer MEDICAID, SELFPAY ==
--- NOTE | ~2025-07-22 | US_ITS ---
EXAMINATION: US HEAD NECK SOFT TISSUE HISTORY: two R 5-10 mm nodules behind L ear for eval COMPARISON: There are no prior studies available for comparison. FINDINGS: Sonographic examination of the left postauricular region was performed for further evaluation of palpable findings. There are 2 adjacent ovoid hypoechoic nodules measuring 9 x 2 x 10 mm and 7 x 2 x 8 mm compatible with lymph nodes. US/US soft tiss head and/or neck IMPRESSION: There are 2 adjacent lymph nodes in the left postauricular region corresponding to the palpable findings. Electronically signed by: Mukul Santos MD 07/22/2025 10:42 AM EST
--- OUTSIDE RECORDS SUMMARY | 2025-07-22 09:31 | XMS_ITS | Encounter Summary ---
Author Organization [employer] Address [address] [facility] [address] 7[address] [place] [address] Care Team Providers Care Engineer Second Assistant Name Role Phone Rylie Yañez DO Primary Care Provider [phone] Encounter Details Date Type Department Care Team (Late st Contact Info) Description 07/06/2025 Results Follow-Up [facility] MEDICINE [address] [place], [place] [phone] Rylie Yañez DO [address] [place], [place] [phone] T4, Free, Lipid Panel, Standard, TSH, Additional followed-up results: 18 Social History Tobacco Use Types Packs/Day Years [...] 1:30 PM EST Clinical Support [facility] MEDICINE [address] [place] [address] documented as of this encounter Visit Diagnoses Not on filedocumented in this encounter Additional Health Concerns Assessment Noted Time PHQ-9 Depression Total Score: 5 06/18/20 25 12:12 PM EDT documented as of this encounter Care Teams Engineer Second Assistant Relationship Specialty Start Date End Date Rylie Yañez DO [address] [place] [address] PCP - General Family Medicine 01/14/13 documented as of this encounter
--- OUTSIDE RECORDS SUMMARY | 2025-07-22 09:31 | XMS_ITS | Encounter Summary ---
Author Organization [employer] Address [address] [facility] 7t [place] [address] Care Team Providers Care Field Marketing Director Name Role Phone Rylie Yañez DO Primary Care Provider Encounter Details Date Type Department Care Team (Latest Contact Info) Description 06/13/[address] [facility] CONVERSIONS Dental, Provider, DDS Social History Tobacco [...] Description 08/25/2025 1:30 PM EST Clinical Support [facility] MEDICINE [address] [place] [id number] documented as of this encounter Visit Diagnoses Not on filedocumented in this encounter Care Teams Field Marketing Director Relationship Specialty Start Date End Date Rylie Yañez DO [address] [place] [address] PCP - General Family Medicine 01/14/13 documented as of this encounter
--- OUTSIDE RECORDS SUMMARY | 2025-07-22 09:31 | XMS_ITS | Clinical Summary ---
Author Organization [employer] Address [address] [facility] [address] [place] [address] [address] Care Court Registry Officer Name Role Phone RaquelRylie gomes Primary Care Provider + [phone] Allergies No known active allergies Medications * This document contains information received from the source organization and may not represent a complete record from that organization. levETIRAcetam (Keppra) 500 MG tablet Take 1 tablet by mouth in the morning and at bedtime. 07/30/20 20 Active gabapentin (Neurontin) 300 MG capsule Take 1 capsule by mouth in the morning and at bedtime. Active medroxyPROGESTERo ne (Depo-Provera) 150 MG/ML injectionIndicati ons:Encounter for management and injection of injectable progestin contraceptive TAKE TO DOCTOR'S OFFICE FOR ADMINISTRATION EVERY 3 MONTHS 1 mL 3 10/16/19 25 Active hydrOXYzine pamoate (Vistaril) 25 MG capsule Take 1 capsule (25 mg) by mouth every 6 (six) hours if needed for anxiety. 30 capsule 1 06/18/20 25 Active escitalopram (Lexapro) 10 MG tablet Take 1 tablet (10 mg) by mouth Once per day. 30 tablet 2 06/18/20 25 026 Active omeprazole OTC (PriLOSEC OTC) 20 MG EC tablet Take 1 tablet (20 mg) by mouth before breakfast. Do not crush, chew, or split. 90 tablet 1 06/18/20 25 026 Active calcium carbonate EX (Tums E-X) 750 MG chewable tablet Chew 2 tablets (1,500 mg) if needed in the morning, at noon, and at bedtime for indigestion or heartburn. 60 tablet 3 06/18/20 25 026 Active Dupixent 300 MG/2ML solution auto-injector 06/09/20 25 Active tacrolimus (Protopic) 0.1 % ointment APPLY TO THE FACE, TRUNK, ARMS, AND LEGS TWICE DAILY NEEDED 05/08/20 25 Active diphenhydrAMINE (BENADryl) 25 MG tablet Take 1 tablet (25 mg) by mouth every 6 (six) hours if needed for itching. 30 tablet 1 06/18/20 25 Active Emollient (CeraVe Moisturizing) cream Mix 80 G of TAC 0.1% cream into 453 G of CERAVE CREAM and apply topically once a day 453 g 3 06/18/20 25 Active triamcinolone (Kenalog) 0.1 % cream Mix 80 G of TAC 0.1% cream into 453 G of CERAVE CREAM and apply topically once a day 80 g 3 06/18/20 25 Active cetirizine (ZyrTEC) 10 MG tablet Take 1 tablet (10 mg) by mouth Once per day. 90 tablet 3 06/18/20 25 026 Active Hospital, Clinic, or Other Facility Administered Medication [...] dermatitis 07/18/2022 Anxiety disorder 06/16/2015 06/18/2025 Encounters * This document contains information received from the source organization and may not represent a complete record from that organization. Date Type Department Care Team Description 07/07/2025 Telephone [facility] [address] [place] [address] Rylie Yañez DO Results 07/06/2025 Results Follow-Up [facility] [address] [place] [address] Rylie Yañez DO T4, Free, Lipid Panel, Standard, TSH, Additional followed-up results: 18 06/18/2025 10:45 AM EDT Office Visit [address] [address] Rylie Yañez DO Routine history and physical examination of adult (Primary Dx); Generalized anxiety disorder; Seizure disorder (CMS/HCC) (HCC); Chronic migraine; Eczema, unspecified type; Subcutaneous nodules; Polyarthralgia; Epigastric pain; BMI 24.0-24.9, adult; Dietary counseling; Exercise counseling 06/18/2025 Travel 06/11/2025 Patient Outreach [address] [address] Rylie Yañez DO Pre-visit Planning (SDOH Screening negative and Tobacco screening negative) 06/10/[address] [address] Rylie Yañez DO Chart Prep 06/09/2025 1:00 PM EDT Clinical Support [address] [address] Neisha Pgaan RN Encounter for contraceptive management, unspecified type 06/09/2025 Orders Only [address] [address] Jessica Jacobson MD Encounter for contraceptive management, unspecified type (Primary Dx) 06/09/2025 Travel 06/02/[address] [address] Rylie Yañez DO Appointment Request 06/02/2025 Travel from Last 3 Months Immunizations Immunization [...] Description 08/25/2025 1:30 PM EST Clinical Support [facility] [address] [place] [phone] Health Maintenance Due Date Last Done Comments Dental Oral Exam 1996 Dental Prophylaxis 1996 Dental X-Ray: Bitewings 1996 HPV/Cotest 11/10/2023 Pap Smear 11/10/2023 11/09/2020 COVID-19 Vaccine ( season) 2025 Influenza Vaccine (#1) 2025 8, 06/16/2015, 05/30/2014, Additional history exists Dental X-Ray: Full Mouth 06/14/2025 06/13/2022 Family Planning (PISQ) 06/09/2026 06/09/2025 Alcohol/Substance Use [...] 12/04/2014, Additional history exists HIV Screening Completed 06/19/2025, 04/03/2023 Hepatitis C Screening Completed 06/19/2025 Meningococcal B Vaccine Aged Out No l onger eligible based on patient's age to complete this topic RSV under 20 months Aged Out No longe r eligible based on patient's age to complete this topic Rotavirus Vaccines Aged Out No longer eligible based on patient's age to complete this topic Procedures Procedure Name Priority Date/Time Associated Diagnosis Comments XR HAND 3+ VIEWS LEFT Routine 06/19/2025 10:15 AM EDT Polyarthralgia XR ELBOW 3+ VIEWS RIGHT Routine 06/19/2025 10:15 AM EDT Polyarthralgia XR KNEE 4+ VIEWS LEFT Routine 06/19/2025 9:57 AM EDT Polyarthralgia XR HAND 3+ VIEWS RIGHT Routine 06/19/2025 9:52 AM EDT Polyarthralgia HEPATITIS B CORE AB TOTAL Routine 06/19/2025 9:22 AM EDT Routine history and physical examination of adult Generalized anxiety disorder Seizure disorder (CMS/HCC) (HCC) Chronic migraine Eczema, unspecified type Subcutaneous nodules Polyarthralgia Epigastric pain BMI 24.0-24.9, adult Dietary counseling Exercise counseling T-SPOT(R).TB Routine 06/19/2025 9:22 AM EDT Routine history and physical examination of adult Seizure disorder (CMS/HCC) (HCC) Eczema, unspecified type BMI 24.0-24.9, adult Dietary counseling Exercise counseling Polyarthralgia HEPATITIS A ANTIBODY, TOTAL Routine 06/19/2025 9:22 AM EDT Routine history and physical examination of adult Seizure disorder (CMS/HCC) (HCC) Eczema, unspecified type BMI 24.0-24.9, adult Dietary counseling Exercise counseling Polyarthralgia C-REACTIVE PROTEIN Routine 06/19/2025 9: 22 AM EDT Routine history and physical examination of adult Seizure disorder (CMS/HCC) (HCC) Eczema, unspecified type BMI 24.0-24.9, adult Dietary counseling Exercise counseling Polyarthralgia SED RATE BY MODIFIED WESTERGREN Routine 06/19/2025 9:22 AM EDT Routine history and physical examination of adult Seizure disorder (CMS/HCC) (HCC) Eczema, unspecified type BMI 24.0-24.9, adult Dietary counseling Exercise counseling Polyarthralgia RHEUMATOID FACTOR Routine 06/19/2025 9:2 2 AM EDT Routine history and physical examination of adult Seizure disorder (CMS/HCC) (HCC) Eczema, unspecified type BMI 24.0-24.9, adult Dietary counseling Exercise counseling Polyarthralgia LYME DISEASE AB W/REFL TO BLOT (IGG, IGM) Routine 06/19/2025 9:22 AM EDT Routine history and physical examination of adult Seizure disorder (CMS/HCC) (HCC) Eczema, unspecified type BMI 24.0-24.9, adult Dietary counseling Exercise counseling Polyarthralgia JEREMIAH SCREEN, IFA, W/REFL TITER AND PATTERN Routine 06/19/2025 9:22 AM EDT Routine history and physical examination of adult Seizure disorder (CMS/HCC) (HCC) Eczema, unspecified type BMI 24.0-24.9, adult Dietary counseling Exercise counseling Polyarthralgia HEPATITIS B SURFACE ANTIBODY, QUALITATIVE Routine 06/19/2025 9:22 AM EDT Routine history and physical examination of adult Seizure disorder (CMS/HCC) (HCC) Eczema, unspecified type BMI 24.0-24.9, adult Dietary counseling Exercise counseling Polyarthralgia RPR (MONITOR) W/REFL TITER Routine 06/19/2025 9:22 AM EDT Routine history and physical examination of adult Seizure disorder (CMS/HCC) (HCC) Eczema, unspecified type BMI 24.0-24.9, adult Dietary counseling Exercise counseling Polyarthralgia HEPATITIS C AB W/REFL TO HCV RNA, QN, PCR Routine 06/19/2025 9:22 AM EDT Routine history and physical examination of adult Seizure disorder (CMS/HCC) (HCC) Eczema, unspecified type BMI 24.0-24.9, adult Dietary counseling Exercise counseling Polyarthralgia HIV 1/2 ANTIGEN/ANTIBODY, FOURTH GENERATION W/RFL Routine 06/19/2025 9:22 AM EDT Routine history and physical examination of adult Seizure disorder (CMS/HCC) (HCC) Eczema, unspecified type BMI 24.0-24.9, adult Dietary counseling Exercise counseling Polyarthralgia HEPATITIS B SURFACE ANTIGEN, EIA Routine 06/19/2025 9:22 AM EDT Routine history and physical examination of adult Seizure disorder ([facility]/HCC) (HCC) Eczema, unspecified type BMI 24.0-24.9, adult Dietary counseling Exercise counseling Polyarthralgia BASIC METABOLIC PANEL Routine 06/19/2025 9:22 AM EDT Routine history and physical examination of adult Seizure disorder ([facility]/HCC) (HCC) Eczema, unspecified type BMI 24.0-24.9, adult Dietary counseling Exercise counseling Polyarthralgia CBC Routine 06/19/2025 9:22 AM EDT Routine history and physical examination of adult Seizure disorder ([facility]/HCC) (HCC) Eczema, unspecified type BMI 24.0-24.9, adult Dietary counseling Exercise counseling Polyarthralgia HEMOGLOBIN A1C Routine 06/19/2025 9:22 AM EDT Routine history and physical examination of adult Seizure disorder ([facility]) (HCC) Eczema, unspecified type BMI 24.0-24.9, adult Dietary counseling Exercise counseling Polyarthralgia HEPATIC FUNCTION PANEL Routine 06/19/2025 9:22 AM EDT Routine history and physical examination of adult Seizure disorder ([facility]) (HCC) Eczema, unspecified type BMI 24.0-24.9, adult Dietary counseling Exercise counseling Polyarthralgia VITAMIN D,25-OH,TOTAL,IA Routine 06/19/2025 9:22 AM EDT Routine history and physical examination of adult Seizure disorder ([facility]/HCC) (HCC) Eczema, unspecified type BMI 24.0-24.9, adult Dietary counseling Exercise counseling Polyarthralgia TSH Routine 06/19/2025 9:22 AM EDT Routine history and physical examination of adult Seizure disorder ([facility]) (HCC) Eczema, unspecified type BMI 24.0-24.9, adult Dietary counseling Exercise counseling Polyarthralgia LIPID PANEL, STANDARD Routine 06/19/2025 9:22 AM EDT Routine history and physical examination of adult Seizure disorder (CMS/HCC) (HCC) Eczema, unspecified type BMI 24.0-24.9, adult Dietary counseling Exercise counseling Polyarthralgia T4, FREE Routine 06/19/2025 9:22 AM EDT Routine history and physical examination of adult Seizure disorder (CMS/HCC) (HCC) Eczema, unspecified type BMI 24.0-24.9, adult Dietary counseling Exercise counseling Polyarthralgia POCT , URINE Routine 06/09/2025 1:15 PM EDT Encounter for contraceptive management, unspecified type PAP SMEAR Routine 11/09/2020 12:00 AM EDT from Last 3 Months or Most Recently Relevant to Health Maintenance Results * XR Hand 3+ Views Left (06/19/2025 10:15 AM EDT) Anatomical Region Laterality Modality Upper Extremities, Hand Left Radiogra phic Imaging 06/19/2025 10:1 5 AM EDT Narrative 06/19/2025 10:40 AM EDT [place] [address] XRay Report Signed Patient: Esther Lott MR#: [id number] : 1995 Acct:[id number] Age/Sex: 30 / F ADM Date: 06/19/25 Loc: [facility] Attending Dr: Rylie Yañez DO Ordering Physician: Rylie Yañez DO Date of Service: 06/19/25 Procedure(s): XR hand LT min 3V Accession Number(s): [id number] cc: Rylie Yañez DO Reason for Exam: diffuse joint pain EXAMINATION: X-ray right hand X-ray left hand CLINICAL INFORMATION: Polyarthralgia COMPARISON: None TECHNIQUE: Right hand 3 views. Left hand 3 views. FINDINGS: Right hand: No fracture or dislocation. No significant joint space narrowing or marginal osteophytes. No osseous erosion. No abnormal soft tissue calcification. Left hand: No fracture or dislocation. No significant joint space narrowing or marginal osteophytes. No osseous erosion. No abnormal soft tissue calcification. XR/XR hand LT min 3V IMPRESSION: No acute osseous findings Electronically signed by: Du Rendon MD 06/19/2025 10:37 AM EDT RP Dictated By: Du Rendon MD Signed By: <Electronically signed by Du Rendon MD in OV> 06/19/25 1037 DD/ 1015 TD/TT: 06/19/25 1018 Gastroenterologist: MARGUERITE Procedure Note Donotuseinterpreter, Image - 06/19/[address] [address] XRay Report Signed Patient: Lila Lott#: [id number] : 1995Acct:[id number] Age/Sex: 30 M Date: 06/19/25 Loc: [facility] Attending Dr: Rylie Yañez DO Ordering Physician: Rylie Yañez DO Date of Service: 06/19/25 Procedure(s): XR hand LT min 3V Accession Number(s): [id number] cc: Rylie Yañez DO Reason for Exam: diffuse joint pain EXAMINATION: X-ray right hand X-ray left hand CLINICAL INFORMATION: Polyarthralgia COMPARISON: None TECHNIQUE: Right hand 3 views. Left hand 3 views. FINDINGS: Right hand: No fracture or dislocation. No significant joint space narrowing or marginal osteophytes. No osseous erosion. No abnormal soft tissue calcification. Left hand: No fracture or dislocation. No significant joint space narrowing or marginal osteophytes. No osseous erosion. No abnormal soft tissue calcification. XR/XR hand LT min 3V IMPRESSION: No acute osseous findings Electronically signed by: Du Rendon MD 06/19/2025 10:37 AM EDT RP Dictated By: Du Rendon MD Signed By: <Electronically signed by Du Rendon MD in OV> 06/19/25 1037 DD/ 1015 TD/TT: 06/19/25 1018 Gastroenterologist: MARGUERITE us Rylie Yañez DO IMG XR PROCEDURES Edited Res ult - Final * XR Elbow 3+ Views Right (06/19/2025 10:15 AM EDT) Anatomical Region Laterality Modality Upper Extremities, Elbow Right Radiogr aphic Imaging 06/19/2025 10:1 5 AM EDT Narrative 06/19/2025 10:26 AM EDT [address] [address] XRay Report Signed Patient: Esther Lott MR#: [id number] : 1995 Acct:[id number] Age/Sex: 30 / F ADM Date: 06/19/25 [facility] Attending Dr: Rylie Yañez DO Ordering Physician: Rylie Yañez DO Date of Service: 06/19/25 Procedure(s): XR elbow RT min 3V Accession Number(s): [id number] cc: Rylie Yañez DO Reason for Exam: diffuse joint pain EXAMINATION: XR ELBOW 3 VIEWS RIGHT HISTORY: diffuse joint pain COMPARISON: There are no prior studies available for comparison. FINDINGS: Four views of the right elbow are submitted. Osseous mineralization is normal. There is no fracture or dislocation. The joint spaces are preserved. The soft tissues are unremarkable. There is no joint effusion. XR/XR elbow RT min 3V IMPRESSION: Unremarkable examination of the right elbow. Electronically signed by: Mukul Santos MD 06/19/2025 10:23 AM EDT Dictated By: Mukul Santos MD Signed By: <Electronically signed by Mukul Santos MD in OV> 06/19/25 1023 DD/ 1015 TD/TT: 06/19/25 1018 Gastroenterologist: Procedure Note Donotuseinterpreter, Image - 06/19/[address] [address] XRay Report Signed Patient: Tabitha LottR#: [id number] : 1995Acct:[id number] Age/Sex: 30 / FADM Date: 06/19/25 Loc: [facility] Attending Dr: Rylie Yañez DO Ordering Physician: Rylie Yañez DO Date of Service: 06/19/25 Procedure(s): XR elbow RT min 3V Accession Number(s): [id number] cc: Rylie Yañez DO Reason for Exam: diffuse joint pain EXAMINATION: XR ELBOW 3 VIEWS RIGHT HISTORY: diffuse joint pain COMPARISON: There are no prior studies available for comparison. FINDINGS: Four views of the right elbow are submitted. Osseous mineralization is normal. There is no fracture or dislocation. The joint spaces are preserved. The soft tissues are unremarkable. There is no joint effusion. XR/XR elbow RT min 3V IMPRESSION: Unremarkable examination of the right elbow. Electronically signed by: Mukul Santos MD 06/19/2025 10:23 AM EDT Dictated By: Mukul Santos MD Signed By: <Electronically signed by Mukul Santos MD in OV> 06/19/25 1023 DD/ 1015 TD/TT: 06/19/25 1018 Gastroenterologist: Rylie Yañez DO IMG XR PROCEDURES Edited Res ult - Final * XR Knee 4+ Views Left (06/19/2025 9:57 AM EDT) Anatomical Region Laterality Modality Lower Extremities, Knee Left [facility] 06/19/2025 9:57 AM EDT Narrative 06/19/2025 10:28 AM EDT [address] [address] XRay Report Signed Patient: Esther Lott MR#: [id number] : 1995 Acct:[id number] Age/Sex: 30 / F ADM Date: 06/19/25 Loc: [facility] Attending Dr: Rylie Yañez DO Ordering Physician: Rylie Yñaez DO Date of Service: 06/19/25 Procedure(s): XR knee LT 4V Accession Number(s): [id number] cc: Rylie Yañez DO Reason for Exam: diffuse joint pain EXAMINATION: XR KNEE 4 OR MORE VIEWS LEFT HISTORY: diffuse joint pain COMPARISON: There are no prior studies available for comparison. FINDINGS: Five views of the left knee are submitted. Osseous mineralization is normal. There is no fracture or dislocation. The joint spaces are preserved. The soft tissues are unremarkable. There is no joint effusion. XR/XR knee LT 4V IMPRESSION: Unremarkable examination of the left knee. Electronically signed by: Mukul Santos MD 06/19/2025 10:25 AM EDT RP Dictated By: Mukul Santos MD Signed By: <Electronically signed by Mukul Santos MD in OV> 06/19/25 1025 DD/ 0957 TD/TT: 06/19/25 1018 Gastroenterologist: Procedure Note Donotuseinterpreter, Image - 06/19/[address] [address] XRay Report Signed Patient: Lila Lott#: [id number] : 1995Acct:[id number] Age/Sex: Date: 06/19/25 Loc: [facility] Attending Dr: Rylie Yañez DO Ordering Physician: Rylie Yañez DO Date of Service: 06/19/25 Procedure(s): XR knee LT 4V Accession Number(s): [id number] cc: Rylie Yañez DO Reason for Exam: diffuse joint pain EXAMINATION: XR KNEE 4 OR MORE VIEWS LEFT HISTORY: diffuse joint pain COMPARISON: There are no prior studies available for comparison. FINDINGS: Five views of the left knee are submitted. Osseous mineralization is normal. There is no fracture or dislocation. The joint spaces are preserved. The soft tissues are unremarkable. There is no joint effusion. XR/XR knee LT 4V IMPRESSION: Unremarkable examination of the left knee. Electronically signed by: Mukul Santos MD 06/19/2025 10:25 AM EDT RP Dictated By: Mukul Santos MD Signed By: <Electronically signed by Mukul Santos MD in OV> 06/19/25 1025 DD/ 0957 TD/TT: 06/19/25 1018 Gastroenterologist: Rylie Yañez DO IMG XR PROCEDURES Edited Res ult - Final * XR Hand 3+ Views Right (06/19/2025 9:52 AM EDT) Anatomical Region Laterality Modality Upper Extremities, Hand Right Radiogra phic Imaging 06/19/2025 9:52 AM EDT Narrative 06/19/2025 10:40 AM EDT [place] [address] XRay Report Signed Patient: Esther Lott MR#: [id number] : 1995 Acct:[id number] Age/Sex: 30 / F ADM Date: 06/19/25 Loc: [facility] Attending Dr: Rylie Yañez DO Ordering Physician: Rylie Yañez DO Date of Service: 06/19/25 Procedure(s): XR hand RT min 3V Accession Number(s): [id number] cc: Rylie Yañez DO Reason for Exam: diffuse joint pain EXAMINATION: X-ray right hand X-ray left hand CLINICAL INFORMATION: Polyarthralgia COMPARISON: None TECHNIQUE: Right hand 3 views. Left hand 3 views. FINDINGS: Right hand: No fracture or dislocation. No significant joint space narrowing or marginal osteophytes. No osseous erosion. No abnormal soft tissue calcification. Left hand: No fracture or dislocation. No significant joint space narrowing or marginal osteophytes. No osseous erosion. No abnormal soft tissue calcification. XR/XR hand RT min 3V IMPRESSION: No acute osseous findings Electronically signed by: Du Rendon MD 06/19/2025 10:37 AM EDT RP Dictated By: Du Rendon MD Signed By: <Electronically signed by Du Rendon MD in OV> 06/19/25 1037 DD/ 1 TD/TT: 06/19/25 1018 Gastroenterologist: MARGUERITE Procedure Note Donotuseinterpreter, Image - 06/19/[address] [address] XRay Report Signed Patient: Lila Lott#: [id number] : 1995Acct:[id number] Age/Sex: 30 FADM Date: 06/19/25 Loc: [facility] Attending Dr: Rylie Yañez DO Ordering Physician: Rylie Yañez DO Date of Service: 06/19/25 Procedure(s): XR hand RT min 3V Accession Number(s): [id number] cc: Rylie Yañez DO Reason for Exam: diffuse joint pain EXAMINATION: X-ray right hand X-ray left hand CLINICAL INFORMATION: Polyarthralgia COMPARISON: None TECHNIQUE: Right hand 3 views. Left hand 3 views. FINDINGS: Right hand: No fracture or dislocation. No significant joint space narrowing or marginal osteophytes. No osseous erosion. No abnormal soft tissue calcification. Left hand: No fracture or dislocation. No significant joint space narrowing or marginal osteophytes. No osseous erosion. No abnormal soft tissue calcification. XR/XR hand RT min 3V IMPRESSION: No acute osseous findings Electronically signed by: Du Rendon MD 06/19/2025 10:37 AM EDT Dictated By: Du Rendon MD Signed By: <Electronically signed by Du Rendon MD in OV> 06/19/25 1037 DD/ 1 TD/TT: 06/19/25 1018 Gastroenterologist: MARGUERITE Rylie Yañez DO IMG XR PROCEDURES Edited Res ult - Final * Vitamin D, 25-Hydroxy, Total, Immunoassay (06/19/2025 9:22 AM EDT) Vitamin D 25-OH Total 36.1 >30 ng/mL [facility] Comment: Health Based Reference Values*< 20 ng/mL Prmlhmxum51-13 ng/mL Insufficient> 30 ng/mL Sufficient*Elinor COCHRAN. N Engl J Med. 2007;357:266-280There is no well-established upper level of normal vitamin Dlevels. Some laboratories use 50 ng/mL as an upper limit ofnormal. However, toxicity is patient-dependent and may occurat any level. Careful correlation with the patient'spresentation is necessary and, if there is concern forvitamin D toxicity, treatment should be consideredirrespective of the serum level.Care must be taken in interpreting Vitamin D results fromdifferent laboratories and methodologies. Published datademonstrated that results from patients undergoinghemodialysis may show a negative bias when tested withvarious automated 25-OH vitamin D assays when compared toLC-MS/MS.When testing samples from patients whose predominant form ofVitamin D is Vitamin D2, such as patients receiving VitaminD2 supplementation, results that are subtherapeutic shouldbe confirmed with another method such as LC-MS/MS. Blood Venous blood specimen / Unknown 06/19/2025 9:22 AM EDT 06/19/2025 11:21 AM EDT us Rylie Yañez DO LAB BLOOD ORDERABLES Final R esult [facility] [address] [place] [phone] * T-SPOT??.TB (06/19/2025 9:22 AM EDT) [facility] T Spot TB Negative Negative [facility] Comment:A negative test resu lt does not exclude the possibilityof exposure to or infection with Mycobacteriumtuberculosis (M. tuberculosis). Patients with recentexposure to TB infected individuals exhibiting anegative T-SPOT.TB result should be considered forretesting within 6 weeks or if other relevant clinicalsymptoms indicate. Results from T-SPOT.TB testing mustbe used in conjunction with each individual'sepidemiological history, current medical status,and results of other diagnostic evaluations.The T-SPOT.TB test is qualitative and results arereported as positive, borderline, or negative, giventhat the test controls perform as expected. In linewith the Centers for Disease Control and Prevention's2010 recommendation to report quantitative measurementsalongside the qualitative result, the laboratoryprovides spot counts for informational purposes only.The T-SPOT.TB test should not be interpreted as aquantitative test. TS PANEL A 0 [facility] TS PANEL B 0 [facility] Negative Control Passed [facility] Positive Control Passed [facility] Comment:For additional infor cyrus, please refer tohttp://education.[employer]/faq/SEW293(This link is being provided for informational/educational purposes only.)THIS TEST WAS PERFORMED AT:[id number] [place] [phone] JEFFERS MD,PHD 06/19/2025 9:22 AM EDT 06/19/2025 11:21 AM EDT Rylie Yañez DO LAB BLOOD ORDERABLES Final R esult [facility] [address] [place] [phone] * Lyme Disease Ab with Reflex to Blot (IgG, IgM) (06/19/2025 9:22 AM EDT) Lyme Antibody Screen <0.90 index [facility] Comment:Index Interpretation ----- < 0.90 Negative 0.90-1.09 Equivocal > 1.09 PositiveAs recommended by the Food and Drug Administration(FDA), all samples with positive or equivocalresults in a Borrelia burgdorferi antibody screenwill be tested using a blot method. Positive orequivocal screening test results should not beinterpreted as truly positive until verified as suchusing a supplemental assay (e.g., B. burgdorferi blot).The screening test and/or blot for B. burgdorferiantibodies may be falsely negative in early stagesof Lyme disease, including the period when erythemamigrans is apparent.THIS TEST WAS PERFORMED AT:[employer] [place] [phone] WRIGHT MD Lyme Blot TNP [facility] 06/19/2025 9:22 AM EDT 06/19/2025 11:21 AM EDT us Rylie Yañez DO LAB BLOOD ORDERABLES Final R esult Performing Organization Address City/[facility]/ZIP Co de Phone Number [facility] [address] [place] [phone] * Hepatitis C Antibody with Reflex to HCV, RNA, Quantitative, Real-Time PCR (06/19/2025 9:22 AM EDT) Hepatitis C Antibody Nonreactive Nonreactive [facility] Comment:Antibodies to HCV no t detected; does not exclude early acuteHCV infection. Blood Venous blood specimen / Unknown 06/19/2025 9:22 AM EDT 06/19/2025 11:21 AM EDT us Rylie Yañez DO LAB BLOOD ORDERABLES Final R esult Performing Organization Address [facility] Co de Phone Number [facility] [address] [place] [phone] * Hepatitis A Antibody, Total (06/19/2025 9:22 AM EDT) Hepatitis A Antibody IgG REACTIVE Nonreactive [facility] Comment:The presence of IgG anti-HAV implies past HAV infection(recent or distant) or vaccination against HAV. Blood Venous blood specimen / Unknown 06/19/2025 9:22 AM EDT 06/19/2025 11:21 AM EDT us Rylie Yañez DO LAB BLOOD ORDERABLES Final R esult Performing Organization Address City/[facility]/ZIP Co de Phone Number [facility] [address] [place] [phone] * Hepatitis B surface antigen, EIA (06/19/2025 9:22 AM EDT) Hepatitis B Surface Ag Negative Negative [facility] Blood Venous blood specimen / Unknown 06/19/2025 9:22 AM EDT 06/19/2025 11:21 AM EDT Rylie Yañez DO LAB BLOOD ORDERABLES Final R esult Performing Organization Address City/[facility] Co de Phone Number [facility] [address] [place] [phone] * Hepatitis B Core Antibody, Total (06/19/2025 9:22 AM EDT) Hepatitis B Core Antibody Nonreactive Nonreactive [facility] Blood Venous blood specimen / Unknown 06/19/2025 9:22 AM EDT 06/19/2025 11:21 AM EDT Ryile Yañez DO LAB BLOOD ORDERABLES Final R esult Performing Organization Address [facility] de Phone Number [facility] [address] [place] [phone] * RPR (Monitor) with Reflex to??Titer (06/19/2025 9:22 AM EDT) RPR (Monitor) w/Refl Titer NON-REACTI VE NON-REACT COLLEEN [facility] Comment:THIS TEST WAS PERFOR MED AT:[employer] [place] [phone] WRIGHT MD Rapid Plasma Reagin Ab Titer TNP [facility] Blood Venous blood specimen / Unknown 06/19/2025 9:22 AM EDT 06/19/2025 11:21 AM EDT Rylie Yañez DO LAB BLOOD ORDERABLES Final R esult Performing Organization Address City/[facility]/ZIP Co de Phone Number [facility] [address] [place] [phone] * HIV-1/2 Antigen and Antibodies, Fourth Generation, with Reflexes (06/19/2025 9:22 AM EDT) HIV AB/AG Nonreactive Nonreactive [facility] Comment:HIV-1 p24 Ag and/or HIV-1/HIV-2 Ab not detected.A test result that is nonreactive does not exclude thepossibility of exposure to or infection with HIV-1 and/orHIV-2. Nonreactive results in this assay for individualswith prior exposure to HIV-1 and/or HIV-2 may be due toantigen and antibody levels that are below the limit ofdetection of this assay.The [employer] HIV Ag/Ab Combo assay result andsupplemental assay results should be interpreted inconjunction with the patient's clinical presentation,history and other laboratory results. If the results areinconsistent with clinical evidence, additional testing issuggested to confirm the result. Blood Venous blood specimen / Unknown 06/19/2025 9:22 AM EDT 06/19/2025 11:21 AM EDT Rylie Yañez DO LAB BLOOD ORDERABLES Final R esult Performing Organization Address [facility] Co de Phone Number [facility] [address] [place] [phone] * Hepatitis B Surface Antibody, Qualitative (06/19/2025 9:22 AM EDT) ~Hepatitis B Surface Antibody NONREACTIVE Nonreactive [facility] Comment:Nonreactive: < 8.00 mIU/mL Blood Venous blood specimen / Unknown 06/19/2025 9:22 AM EDT 06/19/2025 11:21 AM EDT Rylie Yañez DO LAB BLOOD ORDERABLES Final R esult Performing Organization Address City/[facility]/ZIP Co de Phone Number [facility] [address] [place] [phone] * Sed Rate by Modified Westergren (06/19/2025 9:22 AM EDT) [facility] Erythrocyte Sedimentation Rate 2 0 - 20 MM/HR [facility] Comment:Patients with polycy themia and many hemoglobin abnormalitiesmay have depressed sed rates whereas patients with anemiamay have elevated sed rates. Blood Venous blood specimen / Unknown 06/19/2025 9:22 AM EDT 06/19/2025 11:21 AM EDT us Rylie Yañez DO LAB BLOOD ORDERABLES Final R esult [facility] [address] [place] [phone] * CBC (06/19/2025 9:22 AM EDT) [facility] White Blood Count 9.1 4.8 - 10.8 X10*3/uL [facility] Red Blood Count 4.75 4.20 - 5.50 X10*6/uL [facility] Hemoglobin 14.2 12.0 - 16.0 g/dl [facility] Hematocrit 43.2 37.0 - 47.0 % [facility] Mean Corpuscular Volume 90.9 80.0 - 98.0 fL [facility] Mean Corpuscular Hemoglobin 29.9 27.0 - 33.0 pg [facility] Mean Corpuscular HGB Conc 32.9 31.0 - 35.0 g/dl [facility] Red Cell Distribution Width 12.9 11.0 - 16.0 % [facility] Platelet Count 315 160 - 400 X10*3/uL [facility] Mean Platelet Volume 9.6 9.4 - 12.3 fL [facility] NRBC Pct Auto 0.0 0.0 - 0.2 /100WBC [facility] NRBC Abs Auto 0.000 0.0 - 0.012 X10*3/uL [facility] Blood Venous blood specimen / Unknown 06/19/2025 9:22 AM EDT 06/19/2025 11:21 AM EDT Rylie Otilio LAB BLOOD ORDERABLES Final R esult Performing Organization Address [facility]/ZIP Co de Phone Number [facility] [address] [place] [phone] * Rheumatoid Factor (06/19/2025 9:22 AM EDT) Rheumatoid Factor <13.0 <15.0 IU/mL [facility] Blood Venous blood specimen / Unknown 06/19/2025 9:22 AM EDT 06/19/2025 11:21 AM EDT Rylie Otilio LAB BLOOD ORDERABLES Final R esult Performing Organization Address [facility] Co de Phone Number [facility] [address] [place] [phone] * C-reactive Protein (06/19/2025 9:22 AM EDT) Pathologist [facility] [place] C Reactive Protein <0.10 < or = 0.50 mg/dL [facility] Blood Venous blood specimen / Unknown 06/19/2025 9:22 AM EDT 06/19/2025 11:21 AM EDT Rylie Otilio LAB BLOOD ORDERABLES Final R esult Performing Organization Address [facility] Co de Phone Number [facility] [address] [place] [phone] * JEREMIAH Screen,IFA, with Reflex to Titer and Pattern (06/19/2025 9:22 AM EDT) Anti Nuclear Antibody Screen NEGATIVE NEGATIVE [facility] Comment:JEREMIAH IFA is a first l ine screen for detecting thepresence of up to approximately 150 autoantibodies invarious autoimmune diseases. A negative JEREMIAH IFA resultsuggests an JEREMIAH-associated autoimmune disease is notpresent at this time, but is not definitive. If thereis high clinical suspicion for Sjogren's syndrome,testing for anti-SS-A/Ro antibody should be considered.Anti-Becka-1 antibody should be considered for clinicallysuspected inflammatory myopathies.AC-0: NegativeInternational Consensus on JEREMIAH Patterns(https://doi.org/10.1515/pfoc-4627-1216)For additional information, please refer tohttp://education.[employer]/faq/CQR769(This link is being provided for informational/educational purposes only.)THIS TEST WAS PERFORMED AT:[employer] [place] [phone] WRIGHT MD JEREMIAH Titer TNP [facility] JEREMIAH Pattern TNP [facility] JERMEIAH Titer 2 [facility]EREMIA[facility] Pattern 2 TNP [facility] JEREMIAH TITER 3 [facility] JEREMIAH PATTERN 3 TNP [facility] Blood Venous blood specimen / Unknown 06/19/2025 9:22 AM EDT 06/19/2025 11:21 AM EDT Rylie Yañez DO LAB BLOOD ORDERABLES Final R esult [facility] [address] [place] [phone] * TSH (06/19/2025 9:22 AM EDT) Thyroid Stimulating Hormone 1.50 0.32 - 4.0 uIU/mL [facility] Comment:TSH 3rd Generation ( Richardson VAZATA) Blood Venous blood specimen / Unknown 06/19/2025 9:22 AM EDT 06/19/2025 11:21 AM EDT Rylie Yañez DO LAB BLOOD ORDERABLES Final R esult Performing Organization Address City/[facility]/ZIP Co de Phone Number [facility] [address] [place] [phone] * T4, Free (06/19/2025 9:22 AM EDT) Free T4 (Free Thyroxine) 1.00 0.71 - 1.85 ng/dL [facility] Blood Venous blood specimen / Unknown 06/19/2025 9:22 AM EDT 06/19/2025 11:21 AM EDT Rylie Yañez DO LAB BLOOD ORDERABLES Final R esult Performing Organization Address [facility] Co de Phone Number [facility] [address] [place] [phone] * Hemoglobin A1c (06/19/2025 9:22 AM EDT) Hemoglobin A1c 4.8 <6.0 % [facility] Comment:Hemoglobin A1C Refer ence Range Adults: 4.8 - 6.0 % Non diabetic: < 6.0 % Goal: < 7.0 %Additional Action Suggested: > 8.0 %Note: Hemoglobin A1c results are invalid for patients with abnormal amounts of HbF. Blood transfusions may impact the HbA1c concentration in the patient sample. Estimated Average Glucose 91 mg/dL [facility] Comment:eAG = Estimated ave rage glucose which is %A1C expressed asaverage glucose, using the formula of the B5S-QtxvdmaQwcbuhk Glucose study (ADAG), Diabetes Care, Vol.31,#8,Mar. 2007 Blood Venous blood specimen / Unknown 06/19/2025 9:22 AM EDT 06/19/2025 11:21 AM EDT Rylie Yañez DO LAB BLOOD ORDERABLES Final R esult Performing Organization Address [facility]/ZIP Co de Phone Number [facility] [address] [place] [phone] * (ABNORMAL) Hepatic Function Panel (06/19/2025 9:22 AM EDT) Bilirubin, Total 0.3 0.0 - 1.0 mg/dL [facility] Bilirubin, Direct 0.1 0.0 - 0.5 mg/dL [facility] Aspartate Amino Transferase 22 5 - 31 U/L [facility] Alanine Aminotransferase 15 0 - 31 U/L [facility] Total Protein 8.0 6.5 - 8.0 g/dL [facility] Albumin Level 5.4(H) 3.5 - 5.0 g/dL [facility] Alkaline Phosphatase 57 39 - 117 U/L [facility] Blood Venous blood specimen / Unknown 06/19/2025 9:22 AM EDT 06/19/2025 11:21 AM EDT us Rylie Yañez DO LAB BLOOD ORDERABLES Final R esult [facility] [address] [place] [phone] * (ABNORMAL) Lipid Panel, Standard (06/19/2025 9:22 AM EDT) Pathologist [facility] [place] Triglycerides 46 <150 mg/dL [facility] Comment:Desirable Triglyceri de: less than 150 mg/dLBorderline High Triglyceride 150-199 mg/dLHigh Triglyceride: 200-499 mg/dLVery High Triglyceride: greater than or equal to 5OO mg/dL Cholesterol 173 <200 mg/dL [facility] Comment:Desirable Cholestero l: less than 200 mg/dLBorderline High Cholesterol: 200-239 mg/dLHigh Cholesterol: greater than 239 mg/dL LDL Cholesterol Calculated 116(H) <100 mg/dL [facility] Comment:Desirable LDL: less than 100 mg/dLNear Optimal/Above Optimal LDL: 110- 129 mg/dLBorderline High LDL: 130-159 mg/dLHigh LDL: 160-189 mg/dLVery High LDL: greater than or equal to 190 mg/dL HDL Cholesterol 48 >40 mg/dL [facility] Comment:Desirable HDL: great er than 40 mg/dL Note: This HDL assay may give artificially low results in patients with liver disease. Blood Venous blood specimen / Unknown 06/19/2025 9:22 AM EDT 06/19/2025 11:21 AM EDT us Rylie Yañez DO LAB BLOOD ORDERABLES Final R esult Performing Organization Address City/[facility]/ZIP Co de Phone Number [facility] [address] [place] [phone] * (ABNORMAL) Basic Metabolic Panel (06/19/2025 9:22 AM EDT) Sodium 143 135 - 145 mmol/L [facility] Potassium 4.0 3.3 - 5.1 mmol/L [facility] Chloride 111(H) 96 - 108 mmol/L [facility] Carbon Dioxide 23 22 - 29 mmol/L [facility] Anion Gap 13 12 - 20 [facility] Urea Nitrogen (BUN) 10 9 - 16 mg/dL [facility] Creatinine, Serum 0.74 0.5 - 1.4 mg/dL [facility] Estimated Glomerular Filt Rate >60 [facility] Comment:Chronic Kidney Disea se: Estimated GFR < 60 mL/min/[id number] Kidney Disease: Estimated GFR < 15 mL/min/1.73m2 Glucose 88 60 - 115 mg/dL [facility] Calcium 9.9 8.4 - 10.2 mg/dL [facility] Blood Venous blood specimen / Unknown 06/19/2025 9:22 AM EDT 06/19/2025 11:21 AM EDT us Rylie Yañez DO LAB BLOOD ORDERABLES Final R esult Performing Organization Address City/[facility]/ZIP Co de Phone Number [facility] [address] [place] [phone] * POCT Urine (06/09/2025 1:15 PM EDT) Preg Test, Ur Negative Negative, Indeterminate, None Detected, Invalid, Specimen unsatisfactory for evaluation, Weakly Positive, 2+ QC Media Lot # [id number] Lot# Expiration Date [id number] Urine 06/09/2025 1:15 PM EDT Jessica Jacobson MD POINT OF CARE TEST ENTER/EDIT ORDERABLES Final Result * Pap Smear (11/09/2020 12:00 AM EDT) Swab Rylie Yañez DO LAB CYTOLOGY ORDERABLES Jaquelin l Result [facility] [address], [place] [phone] from Last 3 Months or Most Recently Relevant to Health Maintenance Insurance [facility] C[facility] STAND ADULT Care Teams Court Registry Officer Relationship Specialty Start Date End Date Rylie Yañez DO [address] [place] [phone] PCP - General Family Medicine 01/14/13
--- OUTSIDE RECORDS SUMMARY | 2025-07-22 09:31 | XMS_ITS | Encounter Summary ---
Author Organization [facility] Address [address] [facility] [address] [place] [address] Care Team Providers Care Cotton Sampler Name Role Phone RaquelRylie gomes Primary Care Provider [phone] Encounter Details Date Type Department Care Team (Late st Contact Info) Description 07/20/2022 Abstract [facility] [address] [place] [address] Dental, Provider, DDS Social History Tobacco Use [...] Description 08/25/2025 1:30 PM EST Clinical Support [facility] MEDICINE [address] [place] [address] documented as of this encounter Procedures Procedure [...] on filedocumented in this encounter Care Teams Cotton Sampler Relationship Specialty Start Date End Date Rylie Yañez DO [address] [place] [phone] PCP - General Family Medicine 01/14/13 documented as of this encounter
--- OUTSIDE RECORDS SUMMARY | 2025-07-22 09:31 | XMS_ITS | Encounter Summary ---
Author Organization [employer] Address [address] [place] [address] Care Team Providers Care Semiconductor Wafers Etcher Stripper Name Role Phone RaquelRylie gomes Primary Care Provider [phone] Encounter Details Date Type Department Care Team (Late st Contact Info) Description 06/09/2025 Orders Only [facility] MEDIC[facility] [address] [place], [place] [phone] Jessica Jacobson MD [address] [place], [place] [phone] Encounter for contraceptive management, unspecified type (Primary [...] Description 08/25/2025 1:30 PM EST Clinical Support [facility] [address] [place] [address] documented as of this encounter Visit Diagnoses Diagnosis Encounter for contraceptive management, unspecified type- Primary documented in this encounter Care Teams Semiconductor Wafers Etcher Stripper Relationship Specialty Start Date End Date Rylie Yañez DO [address] [place] [address] PCP - General Family Medicine 01/14/13 documented as of this encounter
== END 2025-07-22 08:57 | disposition home or self-care (01) ==
LOC: HO.HMGCX 08:56
PROVIDERS: PCP Family Medicine; Visit Provider Family Medicine
DX: R22.0 Localized swelling, mass and lump, head (principal)
CPT/HCPCS: 76536

== ENCOUNTER → 2025-07-22 08:58 | Outpatient (BNV) | payer MEDICAID, SELFPAY | PROVIDERS: PCP Family Medicine; Visit Provider Radiology Diagnostic Radiology | DX: R22.0 Localized swelling, mass and lump, head (principal) | CPT/HCPCS: 76536 ==